=== PATIENT | male | born 1970 | race African-American/Black ===

== ENCOUNTER 2016-11-01 15:40 | Emergency (ER) | payer OTHER, MEDICAID ==
[~2016-11-01] VITALS: Ht 185.4 cm; Wt 120.0 kg
[2016-11-01] MEDS ORDERED: ONDANSETRON 4MG ODT PO ONE (16:15)
[2016-11-01] MEDS ORDERED: MORPHINE SULFATE 10 MG/ML CPJ IM ONE (16:15)
[2016-11-01] MEDS ORDERED: TETANUS, DIPHTHERIA, PERTUSSIS VAC/PF 0.5ML (>7YR OLD) IM ONE (16:15)
[2016-11-01 21:30] VITALS: BP 127/68
== END 2016-11-01 22:21 | disposition home or self-care (01) ==
LOC: ER 15:41
DX: S09.90XA Unspecified injury of head, initial encounter (principal); S60.410A Abrasion of right index finger, initial encounter; S60.412A Abrasion of right middle finger, initial encounter; K00.0 Anodontia; M25.562 Pain in left knee; F17.200 Nicotine dependence, unspecified, uncomplicated; Y04.0XXA Assault by unarmed brawl or fight, initial encounter; Y93.89 Activity, other specified; Y99.8 Other external cause status; Y92.89 Other specified places as the place of occurrence of the external cause
CPT/HCPCS: 70450; 73562; 82962; 90471; 90715; 96372; 99284; J2270; L1830; Q0162; Z7610